=== PATIENT | female | born 1975 | race Caucasian/White ===

== ENCOUNTER 2018-08-21 07:32 | Outpatient (CLI) | payer BC ==
[2018-08-21 08:03] LABS: BASOPHILS % (AUTO) 0.5 %; EOSINOPHILS # (AUTO) 0.2 10^3/uL (0.0-0.7); HGB - HEMOGLOBIN 12.6 g/dL (12.0-16.0); LYMPHOCYTES # (AUTO) 1.7 10^3/uL (1.5-3.5); LYMPHOCYTES % (AUTO) 31.4 %; MEAN CORPUSCULAR HEMOGLOBIN 30.7 pg (27.0-31.0); MEAN CORPUSCULAR HGB CONC 33.5 g/dL (32.0-36.0); MEAN CORPUSCULAR VOLUME 91.7 fL (81.0-99.0); MEAN PLATELET VOLUME 7.5 fL (7.9-10.8); MONOCYTES # (AUTO) 0.4 10^3/uL (0.0-1.0); MONOCYTES % (AUTO) 8.2 %; NEUTROPHILS % (AUTO) 55.9 %; PLT - PLATELET COUNT 271 10^3/uL (130-450); RED BLOOD COUNT 4.11 10^6/uL (4.20-5.40); RED CELL DISTRIBUTION WIDTH 13.6 % (12.0-15.0); WHITE BLOOD COUNT 5.4 x10^3/uL (4.8-10.8)
[2018-08-21 08:26] LABS: ALBUMIN 4.2 g/dL (3.2-5.5); ALBUMIN/GLOBULIN RATIO 1.1 (1.0-2.2); ALKALINE PHOSPHATASE 43 IU/L (42-121); ALT ALANINE AMINOTRANSFERASE 17 IU/L (10-60); AST ASPARTATE AMINOTRANSFERASE 23 IU/L (10-42); BILIRUBIN,TOTAL 0.6 mg/dL (0.2-1.0); BUN - BLOOD UREA NITROGEN 14 mg/dL (6-20); CALCIUM 9.1 mg/dL (8.5-10.3); CARBON DIOXIDE - CO2 25 mmol/L (21-32); CHLORIDE 100 mmol/L (101-111); CHOL/HDL RATIO 2.7 (<4.4); CHOLESTEROL 180 mg/dL; CREATININE 0.7 mg/dL (0.4-1.0); GFR - MDRD 92 (>89); GLUCOSE 84 mg/dL (70-100); HDL CHOLESTEROL 67 mg/dL; LDL CHOLESTEROL,CALCULATED 99 mg/dL; LDL/HDL RATIO 1.5 (<4.4); SODIUM 136 mmol/L (135-145); TOTAL PROTEIN 8.2 g/dL (6.7-8.2); VLDL CHOLESTEROL 14 mg/dL
== END 2018-08-21 07:33 | disposition home or self-care (01) ==
LOC: LAB 07:32
PROVIDERS: ATTEND Family Medicine
DX: R53.83 Other fatigue (principal); Z13.1 Encounter for screening for diabetes mellitus; Z13.220 Encounter for screening for lipoid disorders
CPT/HCPCS: 36415; 80053; 80061; 81599; 83036; 83721; 84443; 85025

== ENCOUNTER 2018-12-18 10:35 | Observation (INO) | payer BC ==
[2018-12-18 11:17] LABS: BASOPHILS # (AUTO) 0.1 10^3/uL (0.0-0.1); BASOPHILS % (AUTO) 0.4 %; EOSINOPHILS # (AUTO) 0.1 10^3/uL (0.0-0.7); EOSINOPHILS % (AUTO) 0.6 %; HGB - HEMOGLOBIN 12.1 g/dL (12.0-16.0); LYMPHOCYTES # (AUTO) 2.3 10^3/uL (1.5-3.5); LYMPHOCYTES % (AUTO) 16.8 %; MEAN CORPUSCULAR HEMOGLOBIN 30.2 pg (27.0-31.0); MEAN CORPUSCULAR HGB CONC 32.7 g/dL (32.0-36.0); MEAN CORPUSCULAR VOLUME 92.3 fL (81.0-99.0); MEAN PLATELET VOLUME 10.3 fL (7.9-10.8); MONOCYTES # (AUTO) 0.9 10^3/uL (0.0-1.0); MONOCYTES % (AUTO) 6.4 %; NEUTROPHILS # (AUTO) 10.3 10^3/uL (1.5-6.6); NEUTROPHILS % (AUTO) 75.4 %; PLT - PLATELET COUNT 342 10^3/uL (130-450); RED BLOOD COUNT 4.01 10^6/uL (4.20-5.40); RED CELL DISTRIBUTION WIDTH 13.4 % (12.0-15.0); WHITE BLOOD COUNT 13.6 x10^3/uL (4.8-10.8)
[2018-12-18 11:30] LABS: ALBUMIN 4.5 g/dL (3.2-5.5); BILIRUBIN,TOTAL 0.7 mg/dL (0.2-1.0); CALCIUM 9.1 mg/dL (8.5-10.3); CREATININE 0.7 mg/dL (0.4-1.0); TOTAL PROTEIN 8.8 g/dL (6.7-8.2)
--- NOTE | 2018-12-18 11:51 | ED Physician Documentation ---
PD HPI ABD PAIN - Stated complaint Stated Complaint: LT SIDE ABD PX - Chief complaint Chief Complaint: Abd Pain - History obtained from History obtained from: Patient - History of Present Illness Timing - onset: How many weeks ago (2) Timing - duration: Weeks (2) Timing - details: Gradual onset, Still present (worse the past 2-3 days) Quality: Aching, Sharp, Pain Location: LLQ Radiation: No: Chest, Lower back, Left flank Improved by: Laying still. No: Eating Worsened by: Eating, Moving, Palpation Associated symptoms: Fever (the past 2-3 days), Nausea, Diarrhea, Loss of appetite. No: Vomiting, Constipation, Hematochezia, Dysuria Similar symptoms before: Diagnosis (diverticulititis few years ago) Recently seen: Not recently seen Review of Systems Constitutional: reports: Fever, Chills Nose: denies: Rhinorrhea / runny nose, Congestion Throat: denies: Sore throat Respiratory: denies: Cough GI: reports: Abdominal Pain, Nausea, Diarrhea. 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 - Present Medications Home Medications: Ambulatory Orders Medication Instructions Recorded Confirmed Ibuprofen 800 mg PO DAILY 07/21/13 04/30/14 Multivitamin [Multivitamins] 1 each PO DAILY 04/30/14 04/30/14 Phentermine HCl 30 mg PO DAILY 04/30/14 04/30/14 - Allergies Allergies/Adverse Reactions: Allergies Allergy/AdvReac Type Severity Reaction Status Date / Time ciprofloxacin [From Cipro] AdvReac Intermediate increased Verified 04/30/14 08:05 blood pressure ciprofloxacin HCl * AdvReac Intermediate increased Verified 04/30/14 08:05 [From Cipro] blood pressure - Social History Does the pt smoke?: No Smoking Status: Never smoker Does the pt drink ETOH?: No Does the pt have substance abuse?: No - Immunizations Immunizations are current?: Yes PD ED PE NORMAL - Vitals Vital signs reviewed: Yes - General General: Alert and oriented X 3, Well developed/nourished, Other (Appears in considerable pain) - HEENT HEENT: Pharynx benign - Neck Neck: Supple, no meningeal sign, No adenopathy - Cardiac Cardiac: RRR, No murmur - Respiratory Respiratory: Clear bilaterally - Abdomen Abdomen: Soft, Non distended, No organomegaly, Other (She is markedly tender in the left mid to lower abdomen with localized percussion and rebound tenderness. There is no generalized rebound. She is markedly tender. There is no CVA tenderness. Bowel sounds are diminished). No: Normal bowel sounds - Female Female : Deferred - Rectal Rectal: Deferred - Back Back: No CVA TTP - Derm Derm: Normal color, Warm and dry - Extremities Extremities: No deformity, Normal ROM s pain - Neuro Neuro: Alert and oriented X 3, No motor deficit, Normal speech Results - Vitals Vitals: Vital Signs - 24 hr 12/18/18 12/18/18 12/18/18 10:38 11:19 13:18 Temperature 36.6 C Heart Rate 103 H 101 H 102 H Respiratory 18 24 15 Rate Blood Pressure 143/105 H 126/92 H 116/91 H O2 Saturation 98 100 98 Oxygen O2 Source Room air - Labs Labs: Laboratory Tests 12/18/18 12/18/18 12/18/18 11:14 11:14 13:20 WBC 13.6 H RBC 4.01 L Hgb 12.1 Hct 37.0 MCV 92.3 MCH 30.2 MCHC 32.7 RDW 13.4 Plt Count 342 MPV 10.3 Neut # (Auto) 10.3 H Lymph # (Auto) 2.3 [place] # (Auto) 0.9 Eos # (Auto) 0.1 Baso # (Auto) 0.1 Absolute Nucleated RBC 0.00 Nucleated RBC % 0.0 Sodium 134 L Potassium 3.5 Chloride 98 L Carbon Dioxide 24 Anion Gap 12.0 BUN 14 Creatinine 0.7 Estimated GFR (MDRD) 92 Glucose 91 Calcium 9.1 Total Bilirubin 0.7 AST 20 ALT 20 Alkaline Phosphatase 43 Total Protein 8.8 H Albumin 4.5 Globulin 4.3 H Albumin/Globulin Ratio 1.0 Lipase 24 Urine Color YELLOW Urine Clarity CLEAR Urine pH 6.5 Ur Specific [place] <=1.005 Urine Protein NEGATIVE Urine Glucose (UA) NEGATIVE Urine Ketones NEGATIVE Urine Occult Blood NEGATIVE Urine Nitrite NEGATIVE Urine Bilirubin NEGATIVE Urine Urobilinogen 0.2 (NORMAL) Ur Leukocyte Esterase NEGATIVE Ur Microscopic Review NOT INDICATED Urine Culture Comments NOT INDICATED - Rads (name of study) abd CT Radiology: Prelim report reviewed (Diverticulitis of the descending colon without perforation or abscess.), See rad report PD MEDICAL DECISION MAKING - ED course Complexity details: reviewed results, re-evaluated patient, considered differential (She is having considerable pain and tenderness. Her white count is elevated. There is no perforation or abscess on CT but does have localized diverticulitis. Recheck abdomen after medications shows less tenderness but still localized peritoneal signs with guarding and some percussion. We discussed treatment options and will look towards hospitalization for initial therapy. She is given IV fluids and medications and antibiotics here in the ER.), d/w patient Departure - Departure Disposition: ED Place in Observation Clinical Impression: Acute diverticulitis Abdominal pain Qualifiers: Abdominal location: left lower quadrant Qualified Code(s): R10.32 - Left lower quadrant pain Leukocytosis Qualifiers: Leukocytosis type: unspecified Qualified Code(s): D72.829 - Elevated white blood cell count, unspecified Condition: Stable Record reviewed to determine appropriate education?: Yes
[2018-12-18] MEDS ORDERED: KETOROLAC 15 MG/ML VIAL IVP STA (12:14)
[2018-12-18] MEDS ORDERED: cefTRIAXone 1 GM VIAL IVP STA (12:14)
[2018-12-18] MEDS ORDERED: SODIUM CHLORIDE 0.9% 1,000 ML IV ONE (12:14)
[2018-12-18] MEDS ORDERED: HYDROmorphone 2 MG/ML VIAL IVP STA (12:15)
[2018-12-18] MEDS ORDERED: metroNIDAZOLE 500 MG/100 ML 500 MG/100 ML BAG IV ONE (12:15)
[2018-12-18] MEDS ORDERED: IOVERSOL 320 100 ML VIAL IVP ONE ×2 (12:34→12:35)
--- NOTE | 2018-12-18 13:17 | CT Report ---
Reason: left abd pain for 2 wks Procedure Date: 12/18/2018 Accession Number: [id number] / [id number] Procedure: CT - Abdomen/Pelvis W CPT Code: FULL RESULT: EXAM: CT ABDOMEN AND PELVIS EXAM DATE: 12/18/2018 12:29 PM. CLINICAL HISTORY: Left abd pain for 2 wks. COMPARISONS: PELVIC W/TRANSVAGINAL 01/04/2016 1:20 PM. TECHNIQUE: Routine helical CT imaging was performed through the abdomen and pelvis. IV contrast: 100 mL Optiray 320. Enteric contrast: No. Reconstructions: Coronal and sagittal. In accordance with CT protocol optimization, one or more of the following dose reduction techniques were utilized for this exam: automated exposure control, adjustment of mA and/or KV based on patient size, or use of iterative reconstructive technique. FINDINGS: Lung Bases: Unremarkable. Liver: Unremarkable. Gallbladder/Bile Ducts: The gallbladder is not visualized and is likely surgically absent. Spleen: Normal. Pancreas: Normal. Adrenal Glands: Normal. Kidneys: Symmetric renal enhancement. No hydronephrosis or nephrolithiasis. Peritoneal Cavity/Bowel: Nonobstructive bowel gas pattern. Multiple diverticula scattered throughout the colon. There is focal short segment wall thickening and inflammatory change distal descending colon. There is a focally inflamed diverticulum at this location. No free air, free fluid, or abscess. The appendix is well visualized and normal. Pelvic Organs: There is a rim-enhancing hypodense lesion in the left adnexa measuring 16 x 14 mm, which may represent a corpus luteal cyst. The right ovary, uterus, and urinary bladder are unremarkable. Vasculature: No aneurysms or acute abnormality. Bones: No acute abnormality. Other: None. IMPRESSION: Acute diverticulitis of the distal descending colon. No ascites, pneumoperitoneum, or abscess. Nonobstructive bowel gas pattern. Normal appendix. Probable small corpus luteal cyst in the left ovary, although nonspecific by CT. RADIA
[2018-12-18 13:28] LABS: BILIRUBIN,URINE NEGATIVE (NEGATIVE); GLUCOSE, URINE (UA) NEGATIVE (NEGATIVE); KETONES,URINE (UA) NEGATIVE (NEGATIVE); LEUKOCYTE ESTERASE, URINE NEGATIVE (NEGATIVE); NITRITE,URINE NEGATIVE (NEGATIVE); OCCULT BLOOD,URINE NEGATIVE (NEGATIVE); PH,URINE 6.5 PH (5.0-7.5); PROTEIN,URINE NEGATIVE (NEGATIVE); UROBILINOGEN,URINE 0.2 (NORMAL) E.U./dL (NORMAL)
[2018-12-18 13:29] LABS: CLARITY,URINE CLEAR (CLEAR)
[2018-12-18] MEDS ORDERED: oxyCODONE 5 MG TABLET PO PRN (14:45)
[2018-12-18] MEDS ORDERED: SODIUM CHLORIDE FLUSH 0.9% 10 ML SYRINGE IVP PRN (14:45)
[2018-12-18] MEDS ORDERED: ACETAMINOPHEN 325 MG TABLET PO PRN (14:45)
[2018-12-18] MEDS ORDERED: ONDANSETRON 4 MG/2 ML VIAL IVP PRN (14:45)
[2018-12-18] MEDS ORDERED: ZOLPIDEM 5 MG TABLET PO PRN (14:45)
[2018-12-18] MEDS ORDERED: MORPHINE 2 MG/ML CARPUJECT IVP PRN (14:45)
[2018-12-18] MEDS ORDERED: metroNIDAZOLE 500 MG/100 ML 500 MG/100 ML BAG IV SCH (15:00)
--- NOTE | 2018-12-18 15:51 | HISTORY & PHYSICAL EXAMINATION ---
Chief Complaint - Chief Complaint Chief Complaint: abdominal pain History of Present Illness - History of Present Illness HPI Comment/Other: is a 43-yrs old female with a PMH of diverticulitis, who present ER complain of abdominal pain and nausea. pt report she had hx of diverticulitis. She report she has been a lower quadrant abdominal pain for about two week. Finally she report she can not tolerate more, and she came to ER. she report she had nausea but had no vomiting. CT of abdomen reveals acute diverticulitis without abscess, ascites, pneumoperitoneum. Pt had elevated WBC otherwise lab value is unremarkable. pt is afebrile, had a slight tachycardia initially. pt is admitted in observation unit for further management. 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 she denies cigarette smoking, alcohol and drug issue. - POLST POLST Status: Full Code Meds/Allgy - Home Medications Home Medications: Ambulatory Orders Medication Instructions Recorded Confirmed Ibuprofen 800 mg PO DAILY 07/21/13 12/19/18 Multivitamin [Multivitamins] 1 each PO DAILY 04/30/14 12/19/18 Amox/Clav 875/125 [Augmentin] 1 each PO TID #21 tablet 12/19/18 Saccharomyces Boulardii [Florastor] 250 mg PO BID #14 capsule 12/19/18 oxyCODONE [Roxicodone] 5 mg PO Q4-6H PRN #20 tablet 12/19/18 - Allergies Allergies/Adverse Reactions: Allergies Allergy/AdvReac Type Severity Reaction Status Date / Time ciprofloxacin [From Cipro] AdvReac Intermediate increased Verified 04/30/14 08:05 blood pressure ciprofloxacin HCl * AdvReac Intermediate increased Verified 04/30/14 08:05 [From Cipro] blood pressure fentanyl AdvReac Intermediate decreased Verified 12/18/18 19:20 blood pressure Review of Systems - Constitutional Constitutional: denies: Fatigue, Fever, Chills, Malaise, Weakness, Poor appetite, Diaphoresis, Night sweats, Weight gain, Weight loss - Eyes Eyes: denies: Pain, Amaurosis, Blurred vision, Spots in vision, Field loss, Vision loss, Dipolpia - Ears, Nose & Throat Ears, Nose & Throat: denies: Ear pain, Hearing loss, Hearing aids, Vertigo, Nasal pain, Nasal discharge, Nosebleeds, Nasal obstruction, Nasal congestion, Postnasal drainage, Dentures, Sore throat, Hoarseness, Mouth lesions, Bleeding gums - Cardiovascular Cariovascular: denies: Irregular heart rate, Palpitations, Chest pain, Edema, Lightheadedness, Syncope, Exertional dyspnea, Decr. exercise tolerance - Respiratory Respiratory: denies: Cough, Sputum production, Wheezing, Snoring, Hemoptysis, SOB at rest, SOB with exertion - Gastrointestinal Gastrointestinal: reports: Abdominal pain, Nausea. denies: Abdominal distention, Constipation, Diarrhea, Change in bowel habits, Rectal bleeding, Black stools, Bloody stools, Vomiting, Bile emesis, Marciano blood emesis, Coffee grounds emesis, Reflux/heartburn, Bloating, Poor appetite - Genitourinary Genitourinary: denies: Dysuria, Frequency, Urgency, Hematuria, Incontinence, Flank pain, Nocturia, Urethral discharge - Musculoskeletal Musculoskeletal: denies: Muscle pain, Back pain, Muscle aches, Stiffness, Limited range of motion, Muscle weakness, Gout - Integumentary Integumentary: denies: Rash, Pruritis, Lesions, Dryness, Lumps, Acne, Pigment changes, Nail changes - Neurological Neurological: denies: General weakness, Focal weakness, Headache, Dizziness, Numbness, Memory problems, Pre-existing deficit, Abnormal gait - Psychiatric Psychiatric: denies: Depression, Anxiety, Suicidal, Delusions, Hallucinations, Homicidal - Endocrine Endocrine: denies: Polyuria, Polydypsia, Polyphagia, Intolerance to cold - Hematologic/Lymphatic Hematologic/Lymphatic: denies: Anemia, Bruising, Petechiae, Blood clots, Lymphadenopathy, Bleeding tendencies, Recurrent infections Exam - Vital Signs Reviewed Vital Signs: Yes Vital Signs: Vital Signs x48h Temp Pulse Resp BP Pulse Ox 12/18/18 15:47 99 17 118/92 H 99 12/18/18 13:18 102 H 15 116/91 H 98 12/18/18 11:19 101 H 24 126/92 H 100 12/18/18 10:38 36.6 C 103 H 18 143/105 H 98 - Physical Exam General Appearance: positive: Alert, Mild distress. negative: Lethargic Eyes Bilateral: positive: Normal inspection, PERRL, No lid inflammation, Conjunctivae nml ENT: positive: ENT inspection nml, Pharynx nml, No signs of dehydration. negative: Purulent nasal drainage, Pharyngeal erythema, Oral lesions Neck: positive: Nml inspection, Thyroid nml, No JVD, Trachea midline. negative: Thyromegaly, Lymphadenopathy (R), Lymphadenopathy (L), Stiff neck, Swelli ng/bruising, Tracheal deviation Respiratory: positive: Chest non-tender, No respiratory distress, Breath sounds nml. negative: Wheezes, Rales, Rhonchi Cardiovascular: positive: Regular rate & rhythm, No murmur, No gallop. negative: Irregularly irregular, Extrasystoles, Tachycardia, Bradycardia, JVD present, Systolic murmur, Diastolic murmur Peripheral Pulses: positive: 2+ Abdomen: positive: No organomegaly, Nml bowel sounds, No distention, Tenderness. negative: Guarding, Rebound Back: positive: Nml inspection. negative: CVA tenderness (R), CVA tenderness (L) Skin: positive: Color nml, No rash, Warm, Dry. negative: Cyanosis, Diaphoresis, Pallor Extremities: positive: Non-tender, Full ROM, Nml appearance. negative: Calf tenderness, Joint swelling, Sarkis's sign/cords Neurologic/Psychiatric: positive: Oriented x3, Motor nml, Sensation nml, Mood/affect nml. negative: Weakness, Sensory loss, Facial droop, Slurred/abnml speech, Depressed mood/affect Conclusion/Plan - Problem List (1) Acute diverticulitis Conclusion/Plan: pt present lower quadrant abdomen pain, hx of diverticulitis. CT of abdomen reveals diverticulitis treat with Rocephin, Flagyl clear diet first, advance diet as tolerated IVF of NS lab and vital monitor (2) Abdominal pain Conclusion/Plan: the cause of abdominal pain is likely from diverticulitis pain control treat underline diverticulitis with antibiotics advance diet as tolerated, now start with clear diet Qualifiers: Abdominal location: left lower quadrant Qualified Code(s): R10.32 - Left lower quadrant pain (3) Leukocytosis Conclusion/Plan: Elevated WBC is likely from infection of diverticulitis treat with antibiotics lab monitor Qualifiers: Leukocytosis type: unspecified Qualified Code(s): D72.829 - Elevated white blood cell count, unspecified (4) Hyponatremia Conclusion/Plan: Na is 134, slight lower IVF of NS, will lab monitor (5) Full code status Conclusion/Plan: pt request full code - Lab Results Fish Bones: 12/19/18 05:10 12/19/18 05:10 Core Measures - Anticipated LOS I expect patient to be DC'd or transferred within 96 hours.: Yes - DVT/VTE - Prophylaxis VTE/DVT Device ordered at admit?: Yes VTE/DVT Prophylaxis med ordered at admit?: Yes
[2018-12-18] MEDS: SODIUM CHLORIDE FLUSH 0.9% 10 ML SYRINGE IVP SCH (16:20)
[2018-12-18] MEDS: SODIUM CHLORIDE 0.9% 1,000 ML IV SCH (16:20)
[2018-12-18 17:31] LABS: HCG UR QUAL NEGATIVE
[2018-12-18] MEDS: HYDROmorphone 0.5 MG/0.5 ML SYRINGE IVP PRN (21:54)
[2018-12-18] MEDS: metroNIDAZOLE 500 MG/100 ML 500 MG/100 ML BAG IV SCH (21:54)
[2018-12-19] MEDS: SODIUM CHLORIDE FLUSH 0.9% 10 ML SYRINGE IVP SCH ×2 (00:07→09:55)
[2018-12-19] MEDS: HYDROmorphone 0.5 MG/0.5 ML SYRINGE IVP PRN (01:24)
[2018-12-19] MEDS: SODIUM CHLORIDE 0.9% 1,000 ML IV SCH (03:14)
[2018-12-19] MEDS: metroNIDAZOLE 500 MG/100 ML 500 MG/100 ML BAG IV SCH (05:33)
[2018-12-19 05:55] LABS: BASOPHILS % (AUTO) 0.6 %; EOSINOPHILS # (AUTO) 0.2 10^3/uL (0.0-0.7); EOSINOPHILS % (AUTO) 2.4 %; HGB - HEMOGLOBIN 10.4 g/dL (12.0-16.0); LYMPHOCYTES % (AUTO) 28.3 %; MEAN CORPUSCULAR HEMOGLOBIN 29.8 pg (27.0-31.0); MEAN CORPUSCULAR HGB CONC 31.9 g/dL (32.0-36.0); MEAN CORPUSCULAR VOLUME 93.4 fL (81.0-99.0); MEAN PLATELET VOLUME 9.9 fL (7.9-10.8); MONOCYTES # (AUTO) 0.6 10^3/uL (0.0-1.0); MONOCYTES % (AUTO) 7.9 %; NEUTROPHILS # (AUTO) 4.2 10^3/uL (1.5-6.6); NEUTROPHILS % (AUTO) 60.5 %; PLT - PLATELET COUNT 247 10^3/uL (130-450); RED BLOOD COUNT 3.49 10^6/uL (4.20-5.40); RED CELL DISTRIBUTION WIDTH 13.2 % (12.0-15.0)
[2018-12-19 06:05] LABS: CALCIUM 7.8 mg/dL (8.5-10.3); CREATININE 0.5 mg/dL (0.4-1.0); MAGNESIUM 2.2 mg/dL (1.7-2.8)
[2018-12-19] MEDS ORDERED: PANTOPRAZOLE 40 MG TABLET PO SCH (07:00)
[2018-12-19] MEDS ORDERED: cefTRIAXone 2 GM in SODIUM CHLORIDE 0.9% MINIBAG 100 ML IV SCH (09:00)
[2018-12-19] MEDS ORDERED: cefTRIAXone 1 GM VIAL IV SCH (09:00)
[2018-12-19] MEDS ORDERED: ENOXAPARIN 40 MG/0.4 ML SYRINGE SUBQ SCH (09:00)
[2018-12-19] MEDS ORDERED: POLYETHYLENE GLYCOL 3350 17 GM PACKET PO SCH (09:00)
[2018-12-19] MEDS ORDERED: CALCIUM CARBONATE CHEW 500 MG TABLET PO SCH (09:00)
[2018-12-19 09:02] VITALS: BP 112/74
--- NOTE | 2018-12-19 09:25 | Discharge Plan ---
Discharge Plan Problem Reviewed?: Yes Disposition: Home, Self Care Condition: Stable Prescriptions: Amox/Clav 875/125 [Augmentin] 1 each PO TID #21 tablet oxyCODONE [Roxicodone] 5 mg PO Q4-6H PRN #20 tablet PRN Reason: Pain Saccharomyces Boulardii [Florastor] 250 mg PO BID #14 capsule Diet: Soft Activity Restrictions: Activity as Tolerated Shower Restrictions: No (fall precaution) Instruction Topics: Diverticulitis Dc, Amoxicillin Clavulanic Acid tablets, Oxycodone tablets or capsules Health Concerns: diverticulitis Plan of Treatment: Augmentin is prescribed for you to finish the treatment course, advise start with soft diet, advanced diet as tolerated. Care Goals: stabilization and improvement of your medical condition Assessment: CT of abdomen reveals acute diverticulitis without abscess Additional Instructions or Follow Up instructions: You may followup your PCP in one to two weeks. Should your symptoms return or worsen, you may present ER or call 911 for help No Smoking: If you smoke, Please STOP! Call for help. Follow-up with: Joya Brooks MD [Primary Care Provider] -
--- NOTE | 2018-12-19 10:31 | DISCHARGE SUMMARY ---
Discharge Summary Admit Date: 12/18/18 Discharge Date: 12/19/18 Discharging Provider: Bob Morgan Primary Care Provider: Joya Torres Condition at Discharge: Stable Discharge Disposition: 01 Home, Self Care Discharge Facility Name: home - DIAGNOSES Admission Diagnoses: (1) Acute diverticulitis (2) Abdominal pain (3) Leukocytosis (4) Hyponatremia Discharge Diagnoses with Status of Each Condition: 1) Acute diverticulitis resolved. pt report she has no more abdominal pain. she tolerate diet. Her WBC became normal. pt is prescribed Augmentin to finish the treatment course. (2) Abdominal pain resolved (3) Leukocytosis resolved (4) Hyponatremia resolved - HPI History of Present Illness: is a 43-yrs old female with a PMH of diverticulitis, who present ER complain of abdominal pain and nausea. pt report she had hx of diverticulitis. She report she has been a lower quadrant abdominal pain for about two week. Finally she report she can not tolerate more, and she came to ER. she report she had nausea but had no vomiting. CT of abdomen reveals acute diverticulitis without abscess, ascites, pneumoperitoneum. Pt had elevated WBC otherwise lab value is unremarkable. pt is afebrile, had a slight tachycardia initially. pt is admitted in observation unit for further management. - HOSPITAL COURSE Hospital Course: pt was admitted for abdominal pain. pt was found to have acute diverticulitis without abscess. pt was treated with antibiotics. after treatment, pt has no more abdominal pain, pt tolerate the regular. pt was prescribed augmentin to fi ervin the treatment course. the detail hospital course is as the below 1) Acute diverticulitis resolved. pt report she has no more abdominal pain. she tolerate diet. Her WBC became normal. pt is prescribed Augmentin to finish the treatment course. (2) Abdominal pain resolved (3) Leukocytosis resolved (4) Hyponatremia resolved - ALLERGIES Allergies/Adverse Reactions: Allergies Allergy/AdvReac Type Severity Reaction Status Date / Time ciprofloxacin [From Cipro] AdvReac Intermediate increased Verified 04/30/14 08:05 blood pressure ciprofloxacin HCl * AdvReac Intermediate increased Verified 04/30/14 08:05 [From Cipro] blood pressure fentanyl AdvReac Intermediate decreased Verified 12/18/18 19:20 blood pressure - MEDICATIONS Home Medications: Ambulatory Orders Medication Instructions Recorded Confirmed Ibuprofen 800 mg PO DAILY 07/21/13 12/19/18 Multivitamin [Multivitamins] 1 each PO DAILY 04/30/14 12/19/18 Amox/Clav 875/125 [Augmentin] 1 each PO TID #21 tablet 12/19/18 Saccharomyces Boulardii [Florastor] 250 mg PO BID #14 capsule 12/19/18 oxyCODONE [Roxicodone] 5 mg PO Q4-6H PRN #20 tablet 12/19/18 - PHYSICAL EXAM AT DISCHARGE General Appearance: positive: No acute distress, Alert. negative: Lethargic Eyes Bilateral: positive: Normal inspection, PERRL, No lid inflammation, Conjunctivae nml ENT: positive: ENT inspection nml, Pharynx nml, No signs of dehydration. negative: Purulent nasal drainage, Pharyngeal erythema, Oral lesions Neck: positive: Nml inspection, Thyroid nml, No JVD, Trachea midline. negative: Thyromegaly, Lymphadenopathy (R), Lymphadenopathy (L), Stiff neck, Swelling/bruising, Tracheal deviation Respiratory: positive: Chest non-tender, No respiratory distress, Breath sounds nml. negative: Wheezes, Rales, Rhonchi Cardiovascular: positive: Regular rate & rhythm, No murmur, No gallop. negative: Irregularly irregular, Extrasystoles, Tachycardia, Bradycardia, JVD present, Systolic murmur, Diastolic murmur Peripheral Pulses: positive: 2+ Abdomen: positive: Non-tender, No organomegaly, Nml bowel sounds, No distention. negative: Tenderness, Guarding, Rebound Back: positive: Nml inspection. negative: CVA tenderness (R), CVA tenderness (L) Skin: positive: Color nml, No rash, Warm, Dry. negative: Cyanosis, Diaphoresis, Pallor Extremities: positive: Non-tender, Full ROM, Nml appearance. negative: Calf tenderness, Joint swelling, Sarkis's sign/cords Neurologic/Psychiatric: positive: Oriented x3, Motor nml, Sensation nml, Mood/affect nml. negative: Weakness, Sensory loss, Facial droop, Slurred/abnml speech - LABS Result Diagrams: 12/19/18 05:10 12/19/18 05:10 - FOLLOW UP Follow Up: Augmentin is prescribed for you to finish the treatment course, advise start with soft diet, advanced diet as tolerated. You may followup your PCP in one to two weeks. Should your symptoms return or worsen, you may present ER or call 911 for help - TIME SPENT Time Spent in Discharge (Minutes): 45
== END 2018-12-19 11:03 | disposition home or self-care (01) ==
LOC: ED 10:35 → MS3 14:45
PROVIDERS: ADMIT Nurse Practitioner Gerontology; ATTEND Nurse Practitioner Gerontology
DX: K57.32 Diverticulitis of large intestine without perforation or abscess without bleeding (principal); E87.1 Hypo-osmolality and hyponatremia
CPT/HCPCS: 36415; 74177; 80048; 80053; 81003; 81025; 83690; 83735; 85025; 96361; 96365; 96366; 96367; 96375; 96376; 99284; 99285; A9270; G0378; J1170; Q9967; 81001; 87086

== ENCOUNTER 2019-02-03 13:47 | Outpatient (CLI) | payer BC | END 2019-02-03 13:48 | disposition home or self-care (01) | LOC: NS 13:47 | PROVIDERS: ATTEND Family Medicine | DX: Z71.3 Dietary counseling and surveillance (principal); K57.92 Diverticulitis of intestine, part unspecified, without perforation or abscess without bleeding | CPT/HCPCS: 97802 ==

== ENCOUNTER 2019-02-11 10:57 | Outpatient (CLI) | payer BC ==
--- NOTE | 2019-02-11 12:53 | Mammography Report ---
Reason: ROUTINE MAMMO Procedure Date: 02/11/2019 Accession Number: [id number] / [id number] Procedure: [facility] - Screening Mammo w/Capo CPT Code: Final Report FULL RESULT: EXAM: Screening Mammo w/Capo DATE: 02/11/2019 11:18 AM CLINICAL HISTORY: The patient is an asymptomatic 43-year-old female late childbearing. No personal or family history breast cancer. TECHNIQUE: (B) - Bilateral CC and MLO views were obtained. Left exaggerated CC view. COMPARISON: None 12/31/2017, 12/19/2017, 01/25/2014 PARENCHYMAL PATTERN: (D) - The breasts demonstrate heterogeneously dense fibroglandular parenchyma bilaterally. FINDINGS: The pattern of nodular asymmetry stable given positional variation. There are no suspicious masses, calcifications, or areas of distortion. IMPRESSION: Negative examination. BI-RADS category 1. RECOMMENDATION: (ANNUAL) - Recommend routine annual screening mammography. BI-RADS CATEGORY: (1) - Negative. STANDARD QUALIFYING STATEMENTS: 1. This examination was not reviewed with the aid of Computer-Aided Detection (CAD). 2. A negative or benign imaging report should not preclude biopsy if clinically suspicious findings are present. 3. Dense breasts may obscure an underlying neoplasm. 4. This examination was reviewed with the aid of 3D breast imaging (tomosynthesis).
== END 2019-02-11 10:58 | disposition home or self-care (01) ==
LOC: DI 10:57
PROVIDERS: ATTEND Family Medicine
DX: Z12.31 Encounter for screening mammogram for malignant neoplasm of breast (principal)
CPT/HCPCS: 77063; 77067

== ENCOUNTER 2020-03-17 08:03 | Outpatient (CLI) | payer BC ==
[2020-03-17 10:35] LABS: BASOPHILS % (AUTO) 0.3 %; EOSINOPHILS # (AUTO) 0.2 10^3/uL (0.0-0.7); EOSINOPHILS % (AUTO) 2.5 %; HGB - HEMOGLOBIN 12.4 g/dL (12.0-16.0); LYMPHOCYTES # (AUTO) 2.3 10^3/uL (1.5-3.5); LYMPHOCYTES % (AUTO) 37.8 %; MEAN CORPUSCULAR HEMOGLOBIN 30.4 pg (27.0-31.0); MEAN CORPUSCULAR HGB CONC 32.6 g/dL (32.0-36.0); MEAN CORPUSCULAR VOLUME 93.1 fL (81.0-99.0); MEAN PLATELET VOLUME 9.3 fL (7.9-10.8); MONOCYTES # (AUTO) 0.3 10^3/uL (0.0-1.0); MONOCYTES % (AUTO) 5.7 %; NEUTROPHILS # (AUTO) 3.2 10^3/uL (1.5-6.6); NEUTROPHILS % (AUTO) 53.5 %; PLT - PLATELET COUNT 327 10^3/uL (130-450); RED BLOOD COUNT 4.08 10^6/uL (4.20-5.40); RED CELL DISTRIBUTION WIDTH 12.2 % (12.0-15.0)
[2020-03-17 10:58] LABS: % IRON SATURATION 30 % (20-50); ALKALINE PHOSPHATASE 38 IU/L (42-121); ALT ALANINE AMINOTRANSFERASE 15 IU/L (10-60); AST ASPARTATE AMINOTRANSFERASE 20 IU/L (10-42); BILIRUBIN,TOTAL 0.5 mg/dL (0.2-1.0); BUN - BLOOD UREA NITROGEN 14 mg/dL (6-20); CALCIUM 8.9 mg/dL (8.5-10.3); CARBON DIOXIDE - CO2 27 mmol/L (21-32); CHLORIDE 101 mmol/L (101-111); CREATININE 0.6 mg/dL (0.4-1.0); GLUCOSE 88 mg/dL (70-100); IRON 97 ug/dL (28-170); MAGNESIUM 2.6 mg/dL (1.7-2.8); SODIUM 139 mmol/L (135-145); TOTAL IRON BINDING CAPACITY 321 ug/dL (250-450); TRANSFERRIN 229 mg/dL (192-382)
[2020-03-17 10:59] LABS: ALBUMIN 4.3 g/dL (3.2-5.5); ALBUMIN/GLOBULIN RATIO 1.1 (1.0-2.2); AMYLASE 44 U/L (28-100); CRP - C-REACTIVE PROTEIN < 1.0 mg/dL (0-1.0); LIPASE 17 U/L (22-51); TOTAL PROTEIN 8.2 g/dL (6.7-8.2)
[2020-03-17 11:07] LABS: T4 (THYROXINE) 7.76 ug/dL (6.09-12.23)
[2020-03-17 11:08] LABS: CA 125 14.9 U/mL (0.0-35.0); THYROID STIMULATING HORMONE 1.43 uIU/mL (0.34-5.60)
[2020-03-17 11:10] LABS: FREE T4 (FREE THYROXINE) 0.77 ng/dL (0.58-1.64)
[2020-03-17 11:16] LABS: FERRITIN 59.5 ng/mL (11.0-306.8)
--- OUTSIDE RECORDS SUMMARY | 2020-03-23 01:00 | EXTERNAL MEDICAL SUMMARY RPT | Continuity of Care Document ---
:1975 Demographics Phone Unavailable Preferred Language Unknown Marital Status Unknown Moravian Affiliation Unknown Race Unknown Ethnic Group Unknown Author Organization [facility] Address [address] [phone] Phone Care Team Providers Name Role Phone Todd Unavailable Unavailable Allergies date description facility NO KNOWN ENVIRONMENTAL ALLERGIES [facility] PHENYTOIN SODIUM EXTENDED [facility] CARBAMAZEPINE [facility] CLONAZEPAM [facility] CLONIDINE [facility] Results Social History date description facility [id number]
[2020-03-24 09:31] LABS: COPPER 127 mcg/dL (70-175)
[2020-03-30 09:37] LABS: ENDOMYSIAL ANTIBODY IGA TITER 1:40 titer (<1:5); ENDOMYSIAL ANTIBODY SCR IGA POSITIVE (NEGATIVE); GLIADIN (DEAMIDATED) AB IGA >100 U (<20); GLIADIN (DEAMIDATED) AB IGG >100 U (<20); IMMUNOGLOBULIN A 477 mg/dL (47-310)
== END 2020-03-17 08:04 | disposition home or self-care (01) ==
LOC: LAB 08:03
PROVIDERS: ATTEND Registered Nurse
DX: R63.5 Abnormal weight gain (principal); R19.4 Change in bowel habit; Z80.41 Family history of malignant neoplasm of ovary; G89.29 Other chronic pain; R53.83 Other fatigue
CPT/HCPCS: 36415; 80053; 81599; 82150; 82306; 82525; 82607; 82728; 82746; 82784; 82951; 83516; 83520; 83540; 83690; 83735; 84436; 84439; 84443; 84466; 84630; 85025; 85651; 86003; 86038; 86140; 86200; 86256; 86304; 86431

== ENCOUNTER 2020-03-24 14:07 | Outpatient (CLI) | payer BC | END 2020-03-24 14:08 | disposition home or self-care (01) | LOC: LAB 14:07 | PROVIDERS: ATTEND Registered Nurse | DX: R19.4 Change in bowel habit (principal); R63.5 Abnormal weight gain; Z80.41 Family history of malignant neoplasm of ovary; G89.29 Other chronic pain; R53.83 Other fatigue | CPT/HCPCS: 81599; 86038 ==

== ENCOUNTER 2020-03-31 06:58 | Outpatient (CLI) | payer BC ==
--- NOTE | 2020-03-31 10:26 | Ultrasound Report ---
PROCEDURE: Abdomen Complete INDICATIONS: UPPER ABD PAIN TECHNIQUE: Real-time scanning was performed of the abdominal and retroperitoneal organs, with image documentatio n. COMPARISON: CT abdomen and pelvis dated 12/18/2018. FINDINGS: Liver: The liver demonstrates diffusely increased echotexture without focal abnormalities which is c onsistent with chronic hepatocellular disease/hepatic steatosis. Gallbladder: Gallbladder is surgically absent Biliary ducts: Intrahepatic bile ducts are non-dilated. Extrahepatic bile duct caliber measures 6 m m. Normal is 6-7 mm or less in diameter, or 10 mm or less post-cholecystectomy. Pancreas: Visualized portions of the pancreas are sonographically normal. Spleen: Spleen is normal in size and homogeneous in echotexture. Kidneys: Kidneys are normal in size and echotexture. Right kidney measures 11.7 cm long; left kidne y measures 10.3 cm long. No hydronephrosis or nephrolithiasis. No solid masses. Aorta: Visualized aorta is normal in caliber at less than 3 cm. Iliacs: Proximal common iliac arteries are normal in caliber at less than 2.5 cm. IVC: Intrahepatic inferior vena cava is patent. Miscellaneous: No free abdominal fluid. IMPRESSION: Diffusely increased hepatic echotexture likely representing hepatic steatosis versus sequela of chron ic hepatocellular disease. Status post cholecystectomy Reviewed by: Titi Kerns MD on 03/31/2020 10:25 AM PST Approved by: Titi Kerns MD on 03/31/2020 10:25 AM PST Station ID: [id number]
== END 2020-03-31 06:59 | disposition home or self-care (01) ==
LOC: DI 06:58
PROVIDERS: ATTEND Registered Nurse
DX: R10.10 Upper abdominal pain, unspecified (principal); Z90.49 Acquired absence of other specified parts of digestive tract

== ENCOUNTER 2020-04-13 15:44 | Outpatient (CLI) | payer BC ==
--- NOTE | 2020-04-13 16:56 | Ultrasound Report ---
PROCEDURE: Pelvic w/Transvaginal INDICATIONS: PELVIC AND PERINEAL PAIN TECHNIQUE: Real-time scanning was performed of the pelvic organs, with image documentation. Additional endovagi nal scanning was necessary due to incomplete visualization of the adnexal and endometrial structures by transabdominal scanning. COMPARISON: None. FINDINGS: No pathologic free abdominal or pelvic fluid. Uterus: Uterus is borderline prominent in size measuring 9.7 x 3.7 x 5.7 cm. The endometrium measur es 6.6 mm in combined thickness. Nabothian cyst is noted. Moderate fluid is noted within the cervica l canal. scar is noted. Ovaries: Right ovary measures 2.8 x 2.5 x 2.4 cm, volume 8.8 cc. Simple cyst is noted measuring 1.9 x 1.8 x 2.0 cm. Left ovary measures 2.8 x 1.0 x 1.6 cm volume 2.4 cc. IMPRESSION: 1. Simple right ovarian cyst. 2. Fluid is noted within the endometrial canal. Reviewed by: Joanna Jacobs MD on 04/13/2020 4:55 PM PST Approved by: Joanna Jacobs MD on 04/13/2020 4:55 PM PST Station ID: [id number]
== END 2020-04-13 15:45 | disposition home or self-care (01) ==
LOC: DI 15:44
PROVIDERS: ATTEND Registered Nurse
DX: R10.2 Pelvic and perineal pain (principal); N83.201 Unspecified ovarian cyst, right side

== ENCOUNTER 2021-01-02 07:50 | Outpatient (CLI) | payer BC ==
[2021-01-02 08:11] LABS: BASOPHILS % (AUTO) 0.7 %; EOSINOPHILS # (AUTO) 0.2 10^3/uL (0.0-0.7); EOSINOPHILS % (AUTO) 2.7 %; HGB - HEMOGLOBIN 12.7 g/dL (12.0-16.0); LYMPHOCYTES % (AUTO) 33.3 %; MEAN CORPUSCULAR HEMOGLOBIN 30.2 pg (27.0-31.0); MEAN CORPUSCULAR HGB CONC 32.6 g/dL (32.0-36.0); MEAN CORPUSCULAR VOLUME 92.9 fL (81.0-99.0); MEAN PLATELET VOLUME 9.1 fL (7.9-10.8); MONOCYTES # (AUTO) 0.4 10^3/uL (0.0-1.0); NEUTROPHILS # (AUTO) 3.4 10^3/uL (1.5-6.6); NEUTROPHILS % (AUTO) 56.1 %; PLT - PLATELET COUNT 316 10^3/uL (130-450); RED CELL DISTRIBUTION WIDTH 12.2 % (12.0-15.0)
[2021-01-02 08:34] LABS: ALKALINE PHOSPHATASE 32 IU/L (42-121); ALT ALANINE AMINOTRANSFERASE 14 IU/L (10-60); AST ASPARTATE AMINOTRANSFERASE 18 IU/L (10-42); BILIRUBIN,TOTAL 0.6 mg/dL (0.2-1.0); BUN - BLOOD UREA NITROGEN 10 mg/dL (6-20); CALCIUM 8.9 mg/dL (8.5-10.3); CARBON DIOXIDE - CO2 24 mmol/L (21-32); CHLORIDE 104 mmol/L (101-111); CHOL/HDL RATIO 2.5 (<4.4); CHOLESTEROL 181 mg/dL; CREATININE 0.8 mg/dL (0.4-1.0); GFR - MDRD 78 (>89); GLUCOSE 92 mg/dL (70-100); HDL CHOLESTEROL 72 mg/dL; LDL CHOLESTEROL,CALCULATED 81 mg/dL; LDL/HDL RATIO 1.1 (<4.4); POTASSIUM 3.8 mmol/L (3.5-5.0); SODIUM 138 mmol/L (135-145); TRIGLYCERIDES 141 mg/dL; VLDL CHOLESTEROL 28 mg/dL
[2021-01-02 08:41] LABS: CA 125 12.4 U/mL (0.0-35.0)
[2021-01-02 08:45] LABS: THYROID STIMULATING HORMONE 2.45 uIU/mL (0.34-5.60)
== END 2021-01-02 07:51 | disposition home or self-care (01) ==
LOC: LAB 07:50
PROVIDERS: ATTEND Family Medicine
DX: Z01.419 Encounter for gynecological examination (general) (routine) without abnormal findings (principal); Z13.220 Encounter for screening for lipoid disorders; Z13.1 Encounter for screening for diabetes mellitus; R10.12 Left upper quadrant pain
CPT/HCPCS: 36415; 80053; 80061; 83721; 84443; 85025; 86304

== ENCOUNTER 2021-02-13 15:00 | Outpatient (CLI) | payer BC ==
--- NOTE | 2021-02-14 14:09 | Mammography Report ---
BILATERAL DIGITAL SCREENING MAMMOGRAM 3D/2D: 02/13/2021 CLINICAL: Routine screening. Comparison is made to exams dated: 02/11/2019 mammogram - [facility], 12/31/2017 ma mmogram, 12/19/2017 mammogram, and 01/25/2014 mammogram - [facility]. The tissue of both breasts is heterogeneously dense. This may lower the sensitivity of mammography. No significant masses, calcifications, or other findings are seen in either breast. There has been no significant interval change. IMPRESSION: NEGATIVE There is no mammographic evidence of malignancy. A 1 year screening mammogram is recommended. This exam was interpreted at Station ID: [id number]. NOTE: For mammograms, a report in lay terms will be sent to the patient. Approximately 15% of breast malignancies will not be visualized mammographically. In the management of a palpable breast mass, a negative mammogram must not discourage biopsy of a clinically suspicious lesion. Electronically Signed By: Gasper Parkinson M.D., jr/jp:02/13/2021 16:16:35 ACR BI-RADS Category 1: Negative 3341F PARENCHYMAL PATTERN: (D) - The breast(s) demonstrate(s) heterogeneously dense fibroglandular parenchy ma. BI-RADS CATEGORY: (1) - 1 RECOMMENDATION: (ANNUAL) - Recommend routine annual screening mammography. [id number] 1 year screening LATERALITY: (B)
== END 2021-02-13 15:01 | disposition home or self-care (01) ==
LOC: DI.N 15:00
PROVIDERS: ATTEND Family Medicine
DX: Z12.31 Encounter for screening mammogram for malignant neoplasm of breast (principal)

== ENCOUNTER 2022-08-10 13:01 | Outpatient (CLI) | payer BC ==
--- NOTE | 2022-08-10 14:24 | XRAY Report ---
PROCEDURE: Chest 2 View X-Ray INDICATIONS: DYSPNEA TECHNIQUE: 2 views of the chest were acquired. COMPARISON: None. FINDINGS: Surgical changes and devices: None. Lungs and pleura: No pleural effusions or pneumothorax. Lungs are clear. Mediastinum: Mediastinal contours appear normal. Heart size is normal. Bones and chest wall: No suspicious bony lesions. Overlying soft tissues appear unremarkable. IMPRESSION: No acute cardiopulmonary process. Reviewed by: Joanna Jacobs MD on 08/10/2022 2:22 PM PDT Approved by: Joanna Jacobs MD on 08/10/2022 2:22 PM PDT Station ID: [id number]
== END 2022-08-10 13:02 | disposition home or self-care (01) ==
LOC: DI 13:01
PROVIDERS: ATTEND Registered Nurse
DX: R06.00 Dyspnea, unspecified (principal)

== ENCOUNTER 2022-08-10 13:02 | Outpatient (CLI) | payer BC ==
--- NOTE | 2022-08-13 10:19 | Mammography Report ---
BILATERAL DIGITAL SCREENING MAMMOGRAM 3D/2D: 08/10/2022 CLINICAL: Routine screening. Comparison is made to exams dated: 02/13/2021 mammogram, 02/11/2019 mammogram - [facility], 12/31/2017 mammogram, 12/19/2017 mammogram, and 01/25/2014 mammogram - [facility] . There are scattered areas of fibroglandular density in both breasts (category b / 25%-50% glandular t issue). No significant masses, calcifications, or other findings are seen in either breast. There has been no significant interval change. IMPRESSION: NEGATIVE There is no mammographic evidence of malignancy. A 1 year screening mammogram is recommended. Based on the Tyrer Cuzick model (a risk assessment model) the patients lifetime risk is 13.8% and he r 10 year risk is 2.8%. According to the ACR, ACS, and NCCN guidelines, an annual breast MRI exam howard ng with mammogram is recommended if the patients lifetime risk is 20% or greater. This exam was interpreted at Station ID: [id number]. NOTE: For mammograms, a report in lay terms will be sent to the patient. Approximately 15% of breast malignancies will not be visualized mammographically. In the management of a palpable breast mass, a negative mammogram must not discourage biopsy of a clinically suspicious lesion. Electronically Signed By: Titi yeh/jp:08/10/2022 18:24:50 letter sent: No_Letter ACR BI-RADS Category 1: Negative 3341F PARENCHYMAL PATTERN: (A) - The breast(s) demonstrate(s) scattered fibroglandular densities. BI-RADS CATEGORY: (1) - 1 Mammogram [id number] 1 year screening LATERALITY: (B)
== END 2022-08-10 13:03 | disposition home or self-care (01) ==
LOC: DI 13:02
PROVIDERS: ATTEND Registered Nurse
DX: Z12.31 Encounter for screening mammogram for malignant neoplasm of breast (principal)

== ENCOUNTER 2022-12-11 12:00 | Outpatient (CLI) | payer BC | END 2022-12-11 12:15 | disposition home or self-care (01) | LOC: LAB.N 12:00 | PROVIDERS: ATTEND Family Medicine | DX: R30.0 Dysuria (principal) | CPT/HCPCS: 87086; 87181 ==

== ENCOUNTER 2023-02-11 07:45 | Outpatient (CLI) | payer BC ==
--- NOTE | 2023-02-11 15:31 | XRAY Report ---
PROCEDURE: Abdomen 1 View X-Ray INDICATIONS: DIVERTICULITIS TECHNIQUE: One view of the abdomen acquired. COMPARISON: None. FINDINGS: Surgical changes and devices: None. Bowel: Bowel gas pattern is normal. Soft tissues: No suspicious abdominal calcifications. Visualized solid organ contours appear normal in size. Bones: No suspicious bony lesions. IMPRESSION: No acute abdominal pathology. Reviewed by: Joanna Jacobs MD on 02/11/2023 3:29 PM [facility] Approved by: Joanna Jacobs MD on 02/11/2023 3:29 PM [facility] Station ID: [id number]
== END 2023-02-11 08:00 | disposition home or self-care (01) ==
LOC: DI.N 07:45
PROVIDERS: ATTEND Physician Assistant Medical
DX: K57.92 Diverticulitis of intestine, part unspecified, without perforation or abscess without bleeding (principal)
CPT/HCPCS: 36415; 80053; 83690; 85025; 87086

== ENCOUNTER 2023-02-11 08:00 | Outpatient (CLI) | payer BC ==
[2023-02-11 11:51] LABS: BASOPHILS % (AUTO) 0.4 %; EOSINOPHILS # (AUTO) 0.1 10^3/uL (0.0-0.7); EOSINOPHILS % (AUTO) 1.4 %; HCT - HEMATOCRIT 38.7 % (37.0-47.0); LYMPHOCYTES # (AUTO) 1.7 10^3/uL (1.5-3.5); LYMPHOCYTES % (AUTO) 24.5 %; MEAN CORPUSCULAR HEMOGLOBIN 29.6 pg (27.0-31.0); MEAN CORPUSCULAR VOLUME 95.3 fL (81.0-99.0); MEAN PLATELET VOLUME 9.7 fL (7.9-10.8); MONOCYTES # (AUTO) 0.5 10^3/uL (0.0-1.0); MONOCYTES % (AUTO) 7.7 %; NEUTROPHILS # (AUTO) 4.6 10^3/uL (1.5-6.6); NEUTROPHILS % (AUTO) 65.7 %; PLT - PLATELET COUNT 355 10^3/uL (130-450); RED BLOOD COUNT 4.06 10^6/uL (4.20-5.40); RED CELL DISTRIBUTION WIDTH 12.6 % (12.0-15.0)
[2023-02-11 12:50] LABS: ALBUMIN 4.7 g/dL (3.2-5.5); ALBUMIN/GLOBULIN RATIO 1.6 (1.0-2.2); BILIRUBIN,TOTAL 0.2 mg/dL (0.2-1.0); CALCIUM 9.6 mg/dL (8.5-10.3); CREATININE 0.9 mg/dL (0.6-1.3); POTASSIUM 4.1 mmol/L (3.5-4.5); TOTAL PROTEIN 7.6 g/dL (6.4-8.9)
== END 2023-02-11 08:15 | disposition home or self-care (01) ==
LOC: LAB.N 08:00
PROVIDERS: ATTEND Physician Assistant Medical
DX: K57.92 Diverticulitis of intestine, part unspecified, without perforation or abscess without bleeding (principal)
CPT/HCPCS: 36415; 80053; 83690; 85025; 87086

== ENCOUNTER 2023-11-28 14:48 | Outpatient (CLI) | payer BC ==
--- NOTE | 2023-12-02 13:11 | Mammography Report ---
BILATERAL DIGITAL SCREENING MAMMOGRAM 3D/2D: 11/28/2023 CLINICAL: Routine screening. Comparison is made to exams dated: 08/10/2022 mammogram, 02/13/2021 mammogram, 02/11/2019 mammogram - [facility], and 12/19/2017 mammogram - [facility]. There are scattered areas of fibroglandular density (category b / 25%-50% glandular tissue). No significant masses, calcifications, or other findings are seen in either breast. There has been no significant interval change. IMPRESSION: NEGATIVE There is no mammographic evidence of malignancy. A 1 year screening mammogram is recommended. Based on the Tyrer Cuzick model (a risk assessment model) the patient's lifetime risk is 13.7% and he r 10 year risk is 2.9%. According to the ACR, ACS, and NCCN guidelines, an annual breast MRI exam howard ng with mammogram is recommended if the patient's lifetime risk is 20% or greater. This exam was interpreted at Station ID: [id number]. NOTE: For mammograms, a report in lay terms will be sent to the patient. Approximately 15% of breast malignancies will not be visualized mammographically. In the management of a palpable breast mass, a negative mammogram must not discourage biopsy of a clinically suspicious lesion. Electronically Signed By: Hayden cobb/jp:11/29/2023 11:39:36 ACR BI-RADS Category 1: Negative PARENCHYMAL PATTERN: (A) - The breast(s) demonstrate(s) scattered fibroglandular densities. BI-RADS CATEGORY: (1) - 1 RECOMMENDATION: (ANNUAL) - Recommend routine annual screening mammography. [id number] 1 year screening LATERALITY: (B)
== END 2023-11-28 14:49 | disposition home or self-care (01) ==
LOC: DI 14:48
PROVIDERS: ATTEND Registered Nurse
DX: Z12.31 Encounter for screening mammogram for malignant neoplasm of breast (principal)